=== PATIENT | female | born 1950 | race Two or more races ===

== ENCOUNTER 2018-02-11 13:47 | Day surgery (SDC) | payer MEDICARE, MEDICAID ==
--- NOTE | 2018-02-11 01:36 | History and Physical Report ---
DATE: 02/10/2018. CHIEF COMPLAINT AND HISTORY OF CHIEF COMPLAINT: This is a patient with a history of intractable lumbar radiculopathy. She had a spinal cord stimulator trial conducted on 12/23/2017 with 75 to 85 percent pain control. Due to the failure of all other therapies and the success of the trial, she presents today for implantation of a permanent system. PAST MEDICAL HISTORY: Hypertension, hypothyroidism, renal disease, reflux esophagitis. PAST SURGICAL HISTORY: Lumbar spinal surgery, hernia repair. MEDICATIONS ON ADMISSION: To be provided. ALLERGIES: Codeine and Bactrim. FAMILY HISTORY: Adopted. SOCIAL HISTORY: Caffeine. REVIEW OF SYSTEMS: The patient is appropriate and in no acute distress. The remainder of the systems review shows sleep disorder. PHYSICAL EXAMINATION: General: Height and weight are unavailable. Vital Signs: Unavailable. HEENT: Within normal limits. Lungs: Clear. Heart: Regular rate and rhythm. Abdomen: Nontender. Musculoskeletal: Examination of the musculoskeletal system shows diffuse tenderness in the lumbar spine adjacent to a laminectomy scar. Range of motion does produce pain throughout the low back and hip area with a lower extremity component bilaterally, somewhat more right than left. Motor and sensory field function shows mild sensory deficits across the front and back surfaces of both legs. Motor function shows some weakness, right greater than left. Ambulation: Assistive device utilized. Neurologic: Cranial nerves are intact. IMPRESSION: 1. POST LUMBAR LAMINECTOMY SYNDROME, ICD-10 CODE M96.1. 2. LUMBAR RADICULOPATHY, ICD-10 CODE M54.16 AND M54.17. PLAN: The patient is here for a permanent spinal cord stimulator after a successful trial and the failure of all other therapies. The procedure will be considered outpatient, although an overnight stay will be evaluated. The potential risks, side effects, and complications have been carefully reviewed and discussed including nerve root injury, spinal cord injury, and spinal headache. Information from the electrostatic painter was provided for review through direct contact with a parts sales representative. The patient understands and has consented. JOB NUMBER: [id number] cc: Bill Claudio M.D. TONJA
[~2018-02-11 13:47] MED LIST: ACETAMINOPHEN 1,000 MG/100 ML BTL IV ONE; CEFAZOLIN 2 Gram 2 GM/50 ML BAG IVPB ONE; FAMOTIDINE 20MG TABLET PO ONE; MECLIZINE 25 MG TABLET PO ONE; METOCLOPRAMIDE 10 MG TABLET PO ONE
[2018-02-11] MEDS ORDERED: PROPOFOL 10 MG/ML VIAL IV ONE (13:48)
[2018-02-11] MEDS ORDERED: MIDAZOLAM HCL 2MG/2ML VIAL IV ONE (13:48)
[2018-02-11] MEDS ORDERED: HYDROMORPHONE HCL 2 MG/ML VIAL IV ONE (13:48)
[2018-02-11] MEDS ORDERED: ONDANSETRON HCL IV 4 MG/2 ML VIAL IVP ONE (13:48)
[2018-02-11] MEDS ORDERED: LIDOCAINE 2% MDV (20MG/ML) 20ML VIAL IV ONE (13:48)
[2018-02-11] MEDS ORDERED: KETOROLAC 30 MG/ML VIAL IVP ONE (13:48)
[2018-02-11] MEDS ORDERED: MORPHINE SULFATE 4MG/ML PREFILLED SYRINGE IVP ONE (13:48)
[2018-02-11] MEDS ORDERED: FLUMAZENIL 1MG/10ML VIAL IV ONE (13:48)
[2018-02-11] MEDS ORDERED: MORPHINE SULFATE 5 MG/ML PFS IVP ONE (13:48)
[2018-02-11] MEDS ORDERED: HYDROMORPHONE HCL 2 MG/ML VIAL IM PRN ×2 (18:04)
[2018-02-11] MEDS ORDERED: METOCLOPRAMIDE HCL 10 MG/2 ML VIAL IVP PRN (18:04)
[2018-02-11] MEDS ORDERED: DIPHENHYDRAMINE HCL 25 MG CAPSULE PO PRN ×2 (18:04)
[2018-02-11] MEDS ORDERED: AL HYDROX/MAG HYDROX 30ML UD PO PRN (18:04)
[2018-02-11] MEDS ORDERED: DIPHENHYDRAMINE HCL 50 MG/ML VIAL IVP PRN ×2 (18:04)
[2018-02-11] MEDS ORDERED: HYDROCODONE/APAP 7.5/325MG TABLET PO PRN (18:04)
[2018-02-11] MEDS ORDERED: SENNOSIDES/DOCUSATE SODIUM UD CAPSULE PO PRN ×2 (18:04)
[2018-02-11] MEDS ORDERED: OXYCODONE/APAP 10MG-325MG TABLET PO PRN ×2 (18:04)
[2018-02-11] MEDS ORDERED: ACETAMINOPHEN 325 MG TAB PO PRN ×2 (18:04)
[2018-02-11] MEDS ORDERED: METOCLOPRAMIDE 10 MG TABLET PO PRN (18:04)
[2018-02-11] MEDS ORDERED: TEMAZEPAM 15 MG CAPSULE PO PRN ×2 (18:04)
[2018-02-11] MEDS: GABAPENTIN 100 MG CAPSULE PO SCH (21:13)
[2018-02-11] MEDS: CLONIDINE HCL 0.1 MG TABLET PO SCH (21:14)
[2018-02-11] MEDS: GABAPENTIN 300 MG CAPSULE PO SCH (21:15)
[2018-02-11] MEDS: 0.9 % SODIUM CHLORIDE 10ML SYR IVP SCH (21:15)
[2018-02-11] MEDS ORDERED: TRAZODONE 50 MG TABLET PO SCH (22:00)
[2018-02-11] MEDS ORDERED: ROPINIROLE HCL 1 MG TABLET PO SCH (22:00)
[2018-02-11] MEDS ORDERED: ZOLPIDEM TARTRATE 5 MG TABLET PO SCH (22:00)
[2018-02-11] MEDS: CEFAZOLIN 2 Gram 2 GM/50 ML BAG IVPB SCH (22:06)
[2018-02-12] MEDS: CEFAZOLIN 2 Gram 2 GM/50 ML BAG IVPB SCH (06:07)
[2018-02-12] MEDS ORDERED: LEVOTHYROXINE SODIUM 25 MCG TABLET PO SCH (07:00)
[2018-02-12] MEDS ORDERED: PANTOPRAZOLE SODIUM 40 MG TABLET PO SCH (07:00)
[2018-02-12] MEDS ORDERED: LEVOTHYROXINE SOD 112 MCG TAB PO SCH (07:00)
[2018-02-12] MEDS: HYDROCODONE/APAP 7.5/325MG TABLET PO PRN ×2 (08:10→11:13)
[2018-02-12] MEDS ORDERED: BUPROPION HCL 150 MG TAB.SR.12H PO SCH (10:00)
[2018-02-12] MEDS ORDERED: DULOXETINE HCL 30 MG CAPSULE.DR PO SCH (10:00)
[2018-02-12] MEDS: GABAPENTIN 300 MG CAPSULE PO SCH (10:23)
[2018-02-12] MEDS: CLONIDINE HCL 0.1 MG TABLET PO SCH (10:24)
[2018-02-12] MEDS: GABAPENTIN 100 MG CAPSULE PO SCH (10:24)
[2018-02-12] MEDS: 0.9 % SODIUM CHLORIDE 10ML SYR IVP SCH (10:25)
--- NOTE | 2018-02-12 22:19 | Operative Note - Ferro ---
DATE OF SURGERY: 02/11/18 PREOPERATIVE DIAGNOSES: 1. POST LUMBAR LAMINECTOMY SYNDROME, ICD-10 CODE = M96.1. 2. LUMBAR RADICULOPATHY, ICD-10 CODE = M54.16 AND M54.17. SURGERY: 1. FLUOROSCOPIC-GUIDED EPIDURAL ACCESS RIGHT T12-L1. PLACEMENT OF SPINAL CORD STIMULATOR LEAD 1, A [employer] INFINION 16 WITH 6 ELECTRODES POSITIONED RIGHT T5. 2. FLUOROSCOPIC-GUIDED EPIDURAL ACCESS RIGHT T11-12. PLACEMENT OF SPINAL CORD STIMULATOR LEAD 2, A [employer] INFINION 16 WITH 6 ELECTRODES POSITIONED LEFT T5. 3. COMPLEX PROGRAMMING OF LEAD 1, OVER 20 MINUTES FOLLOWED BY COMPLEX PROGRAMMING OF LEAD 2, OVER 20 MINUTES. 4. INCISION, SUBCUTANEOUS DISSECTION, AND ANCHORING OF LEAD 1 AND LEAD 2 TO SUPRASPINOUS FASCIA USING A [employer] LOCKING ANCHOR. 5. INCISION, SUBCUTANEOUS DISSECTION, AND CREATION OF SUBCUTANEOUS POUCH AT RIGHT FLANK, A SITE PICKED BY THE PATIENT FOR THE GENERATOR IDENTIFIED A [employer]ENTIFIC PROGRAMMABLE, RECHARGEABLE WAVEWRITER. 6. TUNNELING BETWEEN LEAD POUCH AND GENERATOR POUCH INTERFACING EACH LEAD TO GENERATOR. 7. PLACEMENT OF LEADS INTO POUCH, PLACEMENT OF GENERATOR INTO POUCH SECURING GENERATOR TO POSTERIOR FASCIA USING NONABSORBABLE SUTURE. CLOSURE OF BOTH INCISIONS WITH VICRYL FOR FASCIA AND SUBCUTICULAR VICRYL FOR SKIN. DERMABOND CLOSURE. 8. COMPLEX RECOVERY ROOM PROGRAMMING INTERNAL GENERATOR HOME USE, 20 MINUTES. SURGEON: SHIRA KARIMI D.O. ANESTHESIA: LOCAL SEDATION. ANESTHESIA PROVIDER: ARIK NUR CRNA. INDICATIONS: This patient presents with a history of intractable thoracic and lumbar radiculopathy. Due to the failure of all therapy, a spinal cord stimulator trial was conducted with 75-85% pain control. Due to the failure of all therapy and the success of the trial, the patient presents today for implantation of a permanent system. SURGERY: Intravenous line, vital sign monitoring, IV sedation, patient positioned prone, sterile prep, sterile technique, under imaging, the epidural interspace right of the midline at 12-1 and 11-12 were infiltrated. Using two separate curved access Epimed needles with a [id number], the space was accessed. At 12-1, spinal cord stimulator lead 1, a [employer] Infinion 16 with 6 electrodes positioned left of the midline at T5. Epidural access at 11 -12, same technique, curved access, spinal cord stimulator lead 2, a [employer] Infinion 16 with 6 electrodes positioned right of midline at T5. Complex programming of lead 1 over 20 minutes followed by complex programming of lead 2 over 20 minutes resulting in complete patterns of stimulation across the back and into the legs. The patient indicating we were in all the areas of the pain. She was given the option to implant the system, continue to program, or remove; she opted to implant. Questions were repeated with the same response. She was then re-sedated. The skin above and below both needles was infiltrated, incision made, and subcutaneous dissection was conducted into the supraspinous fascia. Each of the needles was removed and the leads anchored to the supraspinous fascia with a Swidjit locking anchor and nonabsorbable suture. At the right flank, a site picked by the patient for the generator, skin infiltrated, incision made, and subcutaneous dissection was conducted to form a pouch of suitable size and depth for the generator identified as a [employer] programmable, rechargeable WaveWriter. A tunneling tool was used to carry the leads into the generator pouch and each lead was interfaced with the generator. Antibiotic irrigation and Bovie for hemostasis. The leads were placed into their pouch. The generator was placed into its own pouch and secured to the posterior fascia with nonabsorbable suture. All incisions were then closed with Vicryl for fascia and a running subcuticular Vicryl for skin. Dermabond closure. She was transported to the Recovery Room stable, somewhat painful but showing all functionality and showing no abnormal findings. When fully awake and alert, complex programming of the internal generator was performed in the Recovery Room reestablishing stimulation and pain control to all the appropriate areas. She will be kept overnight for observation. IN THE MORNING DISCHARGE INSTRUCTIONS: 1. The sites will remain clean and dry. No showering or bathing in any way that would disrupt dressings. If it happens, contact the clinic. 2. Standard medications resumed including Levaquin, the antibiotic, 500 mg once a day for 14 days. 3. Once discharged, the office will contact the patient at home to set up an evaluation in 7 to 10 days. She will keep her activities low. In 7 to 10 day evaluation, we will check the sites and ensure appropriate incisional integrity. At that point, she will be cleared for further activities. All other instructions provided, numbers to contact if problems given. cc: Dr. Claudio JOB NUMBER: [id number] [facility]
--- NOTE | 2018-02-14 07:15 | RADIOLOGY REPORT ---
DATE: 02/11/2018 at 4:56 p.m. EXAM: THORACIC SPINE. HISTORY: Post spinal cord stimulator implant. TECHNIQUE: Single AP view of the thoracic spine. COMPARISON: No prior thoracic spine study with which to compare. FINDINGS: Apparent spinal cord stimulator wires are in place extending overlying the spine at the approximate L2 level and then ascending up into the midthoracic level, terminating at the approximate T5 level. IMPRESSION: SPINAL CORD STIMULATOR WIRES EXTEND UP TO THE T5 LEVEL. JOB NUMBER: [id number] MTDD
== END 2018-02-12 11:30 | disposition home or self-care (01) ==
LOC: SUR 13:47 → MEDSURG 17:57 → SUR 02-12 11:30
PROVIDERS: ATTEND Pain Medicine Interventional Pain Medicine
DX: M96.1 Postlaminectomy syndrome, not elsewhere classified (principal); M54.16 Radiculopathy, lumbar region; M54.17 Radiculopathy, lumbosacral region; K21.9 Gastro-esophageal reflux disease without esophagitis; I10 Essential (primary) hypertension; M79.7 Fibromyalgia; M32.9 Systemic lupus erythematosus, unspecified; G25.81 Restless legs syndrome; N19 Unspecified kidney failure
CPT/HCPCS: 62350; 01936; 95972; 72020; J1885; J2405; J3490 ×2; J1170; J0690 ×2; J2270; J2274; C1820; C1883; J2765